=== PATIENT | male | born 1955 | race Two or more races ===

== ENCOUNTER → 2017-01-21 | Outpatient (CLI) | payer OTHER | END | disposition home or self-care (01) | LOC: RD 09:04 | DX: M25.552 Pain in left hip (principal) ==

== ENCOUNTER → 2018-04-07 | Outpatient (CLI) | payer OTHER | END | disposition home or self-care (01) | LOC: RD 10:24 | DX: M25.552 Pain in left hip (principal); M25.561 Pain in right knee; E66.01 Morbid (severe) obesity due to excess calories ==